=== PATIENT | male | born 1940 | race Caucasian/White ===

== ENCOUNTER 2024-01-15 11:45 | Emergency (ER) | payer OTHER ==
[2024-01-15] MEDS ORDERED: Calcium Chloride 1 GM/10 ML Abboject SYRINGE ONE (11:49)
[2024-01-15] MEDS ORDERED: Sodium Bicarb 50 MEQ/50 ML Abboject 8.4% SYRINGE ONE (11:49)
[2024-01-15] MEDS ORDERED: EPINEPHrine 1 MG/10 ML Abboject SYRINGE ONE (11:49)
== END 2024-01-15 12:05 | disposition expired ==
LOC: EDBD 11:45 → ERS 11:45
DX: I46.9 Cardiac arrest, cause unspecified (principal); J81.0 Acute pulmonary edema; R18.8 Other ascites; I12.9 Hypertensive chronic kidney disease with stage 1 through stage 4 chronic kidney disease, or unspecified chronic kidney disease; E11.22 Type 2 diabetes mellitus with diabetic chronic kidney disease; N18.9 Chronic kidney disease, unspecified; I25.10 Atherosclerotic heart disease of native coronary artery without angina pectoris
CPT/HCPCS: 36416; 92950; J0171